=== PATIENT | female | born 1970 | race Caucasian/White ===

== ENCOUNTER 2023-07-03 12:50 | Outpatient (OUT) | payer OTHER, SELFPAY ==
--- NOTE | 2023-07-03 12:55 | MM_ITS ---
Patient Name: AMENA GONZALEZ MR#: [id number] : 1970 Exam Date: 07/03/2023 Ordering Doctor: DR LUIS CARLOS FLORIAN M.D. RADIOLOGY REPORT PROCEDURE: MM TOMOSYNTHESIS SCREENING BI COMPARISON: MG MAMM JUAN MIGUEL DIAG FU, 06/11/2019. MG MAMM SCREEN JUAN MIGUEL W CAD, 05/04/2018. INDICATIONS: screening Calculator Name NCI Breast Cancer Risk Assessment Tool 5 Year Breast Cancer Risk 1.00% Lifetime Breast Cancer Risk 7.70% Personal Breast Cancer No Personal Ovarian Cancer No Treatments None Family Cancers Mother with mouth cancer at age 57; Grandfather-maternal with stomach cancer at age 91. LOCATION: [facility] BREAST COMPOSITION: Heterogeneously dense,which may obscure small masses. FINDINGS: DIAGNOSTIC CATEGORY 2--BENIGN FINDING: RIGHT BREAST: No significant suspicious finding. A few benign-appearing nodules are present; one is smaller, others remain the same. LEFT BREAST: No significant suspicious finding. No significant change has occurred. RECOMMENDATIONS: ROUTINE MAMMOGRAM AND CLINICAL EVALUATION IN 12 MONTHS. PLEASE NOTE: A NORMAL MAMMOGRAM DOES NOT EXCLUDE THE POSSIBILITY OF BREAST CANCER. A CLINICALLY SUSPICIOUS PALPABLE LUMP SHOULD BE BIOPSIED. Dictated by: Mulugeta Plaza M.D. on 07/04/2023 at 10:44 Approved by: Mulugeta Plaza M.D. on 07/04/2023 at 10:48
== END 2023-07-03 12:51 | disposition home or self-care (01) ==
LOC: MAMMO 12:50
PROVIDERS: PCP Family Medicine; Visit Provider Family Medicine
DX: Z12.31 Encounter for screening mammogram for malignant neoplasm of breast (principal); Z80.8 Family history of malignant neoplasm of other organs or systems; Z80.0 Family history of malignant neoplasm of digestive organs
CPT/HCPCS: 77063; 77067

== ENCOUNTER 2024-08-13 10:15 | Outpatient (OUT) | payer OTHER, SELFPAY ==
--- NOTE | 2024-08-13 10:25 | MM_ITS ---
Patient Name: AMENA GONZALEZ MR#: [id number] : 1970 Exam Date: 08/13/2024 Ordering Doctor: ANA LAURA ASIF . RADIOLOGY REPORT PROCEDURE: MM TOMOSYNTHESIS SCREENING BI COMPARISON: MM TOMOSYNTHESIS SCREENING BI, 07/03/2023. MG MAMM JUAN MIGUEL DIAG FU, 06/11/2019. MG MAMM SCREEN JUAN MIGUEL W CAD, 05/04/2018. INDICATIONS: Screening Calculator Name NCI Breast Cancer Risk Assessment Tool 5 Year Breast Cancer Risk 1.00% Lifetime Breast Cancer Risk 7.50% Personal Breast Cancer No Personal Ovarian Cancer No Treatments None Family Cancers Mother with mouth cancer at age 57; Grandfather-maternal with stomach cancer at age 91. LOCATION: [facility] BREAST COMPOSITION: The breasts are heterogeneously dense,which may obscure small masses. FINDINGS: RIGHT BREAST: No significant suspicious finding. LEFT BREAST: No significant suspicious finding. DIAGNOSTIC CATEGORY 1--NEGATIVE. RECOMMENDATIONS: ROUTINE MAMMOGRAM AND CLINICAL EVALUATION IN 12 MONTHS. PLEASE NOTE: A NORMAL MAMMOGRAM DOES NOT EXCLUDE THE POSSIBILITY OF BREAST CANCER. A CLINICALLY SUSPICIOUS PALPABLE LUMP SHOULD BE BIOPSIED. Dictated by: Eddi Mak DO on 08/13/2024 at 16:25 Approved by: Eddi Mak DO on 08/13/2024 at 16:28
--- OUTSIDE RECORDS SUMMARY | 2024-08-13 10:38 | XMS_ITS | CCD ---
Author Organization [facility] ion [facility] Care Team Providers Care Med Dir Name Role Phone REQUEST, NONE LISTED Admitting Unavaila ble HEMEYER, DR MERCADO Primary Care Unavailable REQUEST, NONE LISTED Attending Unavaila ble REQUEST, NONE LISTED Consulting Unavaila ble HEMEYER, DR MERCADO Primary Care Unavailable REQUEST, NONE LISTED Admitting Unavaila ble REQUEST, NONE LISTED Attending Unavaila ble REQUEST, NONE LISTED Consulting Unavaila ble EDSON DUNNE Attending Unavailable Tenzin Aguilar MD Primary Care Provider Alida Singh Primary Care Physician Alida Singh Attending Unavailable FranciscoAlida Admitting Unavailable FranciscoAlida teague Attending Unavailable FranciscoAlida Attending Unavailable Allergies Allergy Classification Reported Allergen(s) Allergy Type Date of Onset Reaction(s) Facility Sulfonamides (antibiotic) (1 source) Sulfonamides (Antibiotic) Drug Allergy [facility] Repository (3 sources) Sulfamethoxazole / Trimethoprim Drug Allergy 01-14-20 23 Rash [facility] Work Phone: (3 sources) Sulfanilamide Allergy to substance 01-14-20 Rash [facility] (3 sources) [place] Venom Propensity to adverse reactions 01-17-19 90 Hives, Itching, Rash [facility] Medications Current Medications Medication Drug Class(es) Dates Sig (Normalized) Sig (Original) Black Cohosh Extract (3 sources) take 1 tablet by mouth once daily BLACK COHOSH PO Take 1 tablet by mouth 1 (one) time each day. Active ciprofloxacin 500 mg oral tablet (1 source) Quinolone Antimicrobial Start: 07-21-2024 take 1 tablet by mouth twice daily ciprofloxacin 500 mg Tab = 1 tab(s), Oral, BID, Refills(s) 0 Start Date: 07/21/24 Status: Ordered estradiol 1 mg oral tablet (1 source) Estrogen Start: 06-30-2024 take 1 tablet by mouth once daily estradiol 1 mg Tab 1 mg = 1 tab(s), Oral, Daily, # 90 tab(s), Refills(s) 0, Pharmacy: [facility], 163.4, cm, 06/30/24 9:39:00 EST, Height/Length Dosing, 94.5, kg, 06/30/24 9:39:00 EST, Weight Dosing Start Date: 06/30/24 Status: Ordered krill oil 500 mg oral capsule (2 sources) Krill Oil 500 MG capsule Take by mouth Active Multiple Vitamin (multivitamin) capsule (3 sources) take 1 capsule by mouth in the morning Multiple Vitamin (multivitamin) capsule Take 1 capsule by mouth in the morning. Active 24 hr oxybutynin chloride 5 mg extended release oral tablet (1 source) Cholinergic Muscarinic Antagonist Start: 06-30-2024 take 1 tablet by mouth once daily oxybutynin 5 mg ER Tab 5 mg = 1 tab(s), Oral, Daily, # 90 tab(s), Refills(s) 0, Pharmacy: [facility], 163.4, cm, 06/30/24 9:39:00 EST, Height/Length Dosing, 94.5, kg, 06/30/24 9:39:00 EST, Weight Dosing Start Date: 06/30/24 Status: Ordered progesterone 100 mg oral capsule (1 source) Progesterone Start: 06-30-2024 take 1 capsule by mouth once daily at bedtime progesterone 100 mg oral capsule 100 mg = 1 cap(s), Oral, Once a day (at bedtime), # 90 cap(s), Refills(s) 1, Pharmacy: [facility], 163.4, cm, 06/30/24 9:39:00 EST, Height/Length Dosing, 94.5, kg, 06/30/24 9:39:00 EST, Weight Dosing Start Date: 06/30/24 Status: Ordered rimegepant 75 mg disintegrating oral tablet (4 sources) Start: 06-30-2024 Nurtec ODT 75 mg oral tablet, disintegrating 75 mg = 1 tab(s), Oral, PRN Migraine headache, Refills(s) 0 Start Date: 06/30/24 Status: Ordered take 1 tablet by slime th every twenty-four hours as needed Nurtec 75 MG tablet dispersible Take 1 tablet by mouth Daily as needed (headache). Active Specialty Vitamins Products (MENOPAUSE SUPPORT PO) (3 sources) take 1 tablet by slime th in the morning Specialty Vitamins Products (MENOPAUSE SUPPORT PO) Take 1 tablet by mouth in the morning. Active Completed/Discontinued Medications Medication Drug Class(es) Dates Sig (Normalized) Sig (Original) citalopram 20 mg oral tablet (4 sources) Serotonin Reuptake Inhibitor Start: 06-30-2024 take 1 tablet by mouth once daily in the morning citalopram 20 mg Tab 20 mg = 1 tab(s), Oral, Daily, TAKE 1 TABLET (20 MG) BY MOUTH IN THE MORNING. Start Date: 06/30/24 Status: Ordered Start: 03-27-2023 take 1 tablet by slime th in the morning citalopram (CeleXA) 20 MG tablet Indications: Depression with anxiety Take 1 tablet (20 mg) by mouth in the morning. 100 tablet 3 03/27/2023 Active fluconazole 150 mg oral tablet (1 source) Azole Antifungal Start: 07-21-2024 take 4 tablets by mouth once Diflucan 150 mg Tab 150 mg = 1 tab(s), Oral, Once, take 1 tab on day one and 1 tabon day four, # 2 tab(s), Refills(s) 1, Pharmacy: [facility], 163.4, cm, 07/21/24 9:29:00 EST, Height/Length Dosing, 94.8, kg, 07/21/24 9:29:00 EST, Weight Dosing Start Date: 07/21/24 Status: Ordered Problems Problem Classification Problem Date Documented Da te Episodic/Chronic Anxiety disorders (5 sources) Mixed anxiety and depressive disorder; Translations: [Other specified anxiety disorders] Onset: 12-10-2022 02-11-2024 Chronic Genitourinary symptoms and ill-defined conditions (1 source) Urinary incontinence 06-30-2024 Chronic Headache; including migraine (6 sources) Migraine with aura; Translations: [Migraine with aura, not intractable, without status migrainosus] Onset: 12-10-2022 02-11-2024 Chronic Menopausal disorders (8 sources) Premature ovarian failure; Translations: [Other primary ovarian failure] Onset: 12-10-2022 02-11-2024 Chronic Mood disorders (8 sources) Recurrent major depressive episodes, mild ; Translations: [Major depressive disorder, recurrent, mild] Onset: 12-10-2022 02-11-2024 Chronic Mycoses (1 source) Candidiasis of vagina 07-21-2024 Episodic Nonmalignant breast conditions (5 sources) Fibrocystic disease of breast; Translations: [Diffuse cystic mastopathy of unspecified breast] Onset: 01-13-2023 02-11-2024 Chronic Other nutritional; endocrine; and metabolic disorders (5 sources) Obese class I; Translations: [Obesity, unspecified] Onset: 12-10-2022 02-11-2024 Chronic Other screening for suspected conditions (not mental disorders or infectious disease) (9 sources) Patient encounter status; Translations: [Encounter for screening for malignant neoplasm of colon] Onset: 12-10-2022 Resolved: 02-11-2024 02-11-2024 Episodic Residual codes; unclassified (1 source) Flushing 06-30-2024 Episodic Unclassified (1 source) Patient encounter status 07-21-2024 Results Test Name Value Interpretation Reference Range Facility PAP 07-26-2024 Cytology report Cyto stain Doc (Cvx/Vag) Note Invalid Interpretation Code [facility] Comment on above: Result Comment: TEST S RESULT FLAG UNITS REF RANGE LAB Clinician Provided Cytology Information Source.............Endocervix No. of containers..01 ThinPrep Vial DIAGNOSIS: 01 NEGATIVE FOR INTRAEPITHELIAL LESION OR MALIGNANCY. Specimen adequacy: 01 Satisfactory for evaluation. No endocervical component is identified. Performed by: Cindi Aguila, Customer Service And Sales Consultant (ASC) . 01 Note: Note 01 The Pap smear is a screening test designed to aid in the detection of premalignant and malignant conditions of the uterine cervix. It is not a diagnostic procedure and should not be used as the sole means of detecting cervical cancer. Both false-positive and false-negative reports do occur. Test Methodology: Note 01 This liquid based ThinPrep(R) pap test was screened with the use of an image guided system. HPV Genotype Reflex Note 01 Criteria not met, HPV Genotype not performed. FLAG LEGEND: L-Low Normal,H-High Normal,LL-Alert Low,HH-Alert High <-Panic Low,>-Panic High,A-Abnormal,AA-Critical Abnormal Performed at: [address] [facility] [place] [address] Nina Pelaez MD, Performed By: #### 1 [id number] #### [facility] [address] [place] [address] HPV 16+18+31+33+35+39+ 45+51+52+56+58+59+ 66+68 DNA Probe+sig amp Ql (Cvx) Negative Invalid Interpretation Code Negative [facility] Comment on above: Result Comment: This nucleic acid amplification test detects fourteen high-risk HPV types (16,18,31,33,35,39,45,51,52,56,58,59,66,68) without differentiation. Performed at: [facility] [place] [id number] MD Latanya Wood Performed at: =[address] [id number] MD Latanya Wood Performed By: #### 1 [id number] #### [facility] [address] [place] [address] Ambulatory Visit Summaryon 0 07-21-2024 Ambulatory Visit Summary Ambulatory Visit Summary AMENA GONZALEZ :1970 Visit Date:07/21/2024 Ambulatory Visit Instructions Your Diagnosis Well woman exam BMI 35.0-35.9,adult Non-smoker Your Care Team Attending Physician - Alida Coreas Primary Care Physician - Alida Coreas This Is Your Medications List ciprofloxacin (ciprofloxacin 500 mg Tab) citalopram (citalopram 20 mg Tab) estradiol (estradiol 1 mg Tab) oxybutynin (oxybutynin 5 mg ER Tab) progesterone (progesterone 100 mg oral capsule) rimegepant (Nurtec ODT 75 mg oral tablet, disintegrating) Procedures Performed Endometrial ablation (05/10/2019), Endovenous laser ablation of varicose vein (01/25/2006), Tonsillectomy (10/21/2001), Dilation and curettage (01/26/1999), section (07/18/1992), Removal of ovarian cyst (03/22/1989). Discharge Vitals Heart Rate (Peripheral) 80 Respiratory Rate 18 Blood Pressure 128/80 Height 163.4 cm Height 64 in Weight 94.75 kg Weight 208.888 lb BMI 35.49 Medications What How Much When Why Instructions New ciprofloxacin (ciprofloxacin 500 mg Tab) 1 Tablets By Mouth 2 times a day Unchanged citalopram (citalopram 20 mg Tab) 1 Tablets By Mouth Every day TAKE 1 TABLET (20 MG) BY MOUTH IN THE MORNING. Unchanged estradiol (estradiol 1 mg Tab) 1 Tablets By Mouth Every day Hot flashes Urinary incontinence BMI 35.0-35.9,adult Smoker Unchanged oxybutynin (oxybutynin 5 mg ER Tab) 1 Tablets By Mouth Every day Hot flashes Urinary incontinence BMI 35.0-35.9,adult Smoker Unchanged progesterone (progesterone 100 mg oral capsule) 1 Capsules By Mouth Once a day (at bedtime) Hot flashes Urinary incontinence BMI 35.0-35.9,adult Smoker Unchanged rimegepant (Nurtec ODT 75 mg oral tablet, disintegrating) 1 Tablets By Mouth As needed for Migraine headache Allergies No active allergies Problems Ongoing - Any problem that you are currently receiving treatment for. Hot flashes Migraine Recurrent major depression Urinary incontinence Well woman exam Patient Survey You may receive a survey via text or e-mail asking about your office visit. Please share your experience with us by completing your survey. We appreciate your feedback and thank you for choosing us for your care. [facility] Family Medicine Office/Clini c Noteon 07-21-2024 Family Medicine Office/Clinic Note Family Medicine Office/Clinic Note HPI Staff Amena is a 53 year old female presenting for well woman Woman check up: Last pap: 5 year ago Last Arielle: arielle ordered SHOBHA 06/30/24 sent to [facility] Results of lap pap: normal Where was it done: hx: # of pregnancies..2. abortions... live births...1 living children... 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 yes Hx of breast, cervical or uterine cancer in the family: no History of Present Illness pt presents today for well woman visit Review of Systems PHQ Score Initial Depression Screen Score: 3 SCORE Physical Exam Vitals & Measurements HR: 80(Peripheral) RR: 18 BP: 128/80 SpO2: 98% HT: 64 in HT: 163.4 cm WT: 94.75 kg WT: 208.888 lb BMI: 35.49 General: Well developed, well nourished, in no acute distress Neck: Neck supple. No masses or palpable cervical nodes. Trachea midline. Thyroid without nodules, masses, tenderness, or enlargement Breast: No mass, nodule, discharge, or erythema bilaterally, and no axillary lymphadenopathy Lungs: Normal respiratory effort and clear to auscultation Cardio: Regular rate and rhythm, normal S1 and S2, no murmur, no rub Abdomen: Soft, non-distended, non-tender, normal bowel sounds x4 Gyno: normal external genitalia. Urethra no discharge. Vagina normal without lesions, no vaginal discharge. Cervix normal, without lesions. Uterus normal. No adnexal masses. Pap obtained thick white vaginal discharge noted on exam Neurologic: Grossly normal Skin: [place], moist, no tenting Lymph Nodes: No cervical adenopathy, nodes normal Mental Status: Alert and oriented x3. Normal mood and affect Assessment/Plan 1. Well woman exam (Z01.419: Encounter for gynecological examination (general) (routine) without abnormal findings) pt presents today for well woman visit. mammogram order sent to [facility]. BSE discussed. pap obtained without difficulty. Ordered: fluconazole, 150 mg = 1 tab(s), Oral, Once, take 1 tab on day one and 1 tabon day four, # 2 tab(s), Refills(s) 1, Pharmacy: [facility], 163.4, cm, 07/21/24 9:29:00 EST, Height/Length Dosing, 94.8, kg, 07/21/24 9:29:00 EST, Weight Dosing Est Preventative 40 to 64 years [address] PAP [id number] w/ HPV and Genotype rflx 2. Vaginal yeast infection (B37.31: Acute candidiasis of vulva and vagina) will send diflucan Ordered: fluconazole, 150 mg = 1 tab(s), Oral, Once, take 1 tab on day one and 1 tabon day four, # 2 tab(s), Refills(s) 1, Pharmacy: [facility], 163.4, cm, 07/21/24 9:29:00 EST, Height/Length Dosing, 94.8, kg, 07/21/24 9:29:00 EST, Weight Dosing Est Preventative 40 to 64 years [address] 3. BMI 35.0-35.9,adult (Z68.35: Body mass index [BMI] 35.0-35.9, adult) BMI education given Ordered: fluconazole, 150 mg = 1 tab(s), Oral, Once, take 1 tab on day one and 1 tabon day four, # 2 tab(s), Refills(s) 1, [facility], 163.4, cm, 07/21/24 9:29:00 EST, Height/Length Dosing, 94.8, kg, 07/21/24 9:29:00 EST, Weight Dosing Est Preventative 40 to 64 years [address] PAP w/ HPV and Genotype rflx 4. Non-smoker (Z78.9: Other specified health status) continue not smoking Ordered: fluconazole, 150 mg = 1 tab(s), Oral, Once, take 1 tab on day one and 1 tabon day four, # 2 tab(s), Refills(s) 1, Pharmacy: [facility], 163.4, cm, 07/21/24 9:29:00 EST, Height/Length Dosing, 94.8, kg, 07/21/24 9:29:00 EST, Weight Dosing Est Preventative 40 to 64 years [address] PAP w/ HPV and Genotype rflx Follow-up No qualifying data available Problem List/Past Medical History Ongoing Hot flashes Migraine Recurrent major depression Urinary incontinence Vaginal yeast infection Well woman exam Historical No qualifying data Procedure/Surgical History Endometrial ablation (05/10/2019), Endovenous laser ablation of varicose vein (01/25/2006), Tonsillectomy (10/21/2001), Dilation and curettage (01/26/1999), section (07/18/1992), Removal of ovarian cyst (03/22/1989). Medications ciprofloxacin 500 mg Tab, 1 tab(s), Oral, BID citalopram 20 mg Tab, 20 mg= 1 tab(s), Oral, Daily Diflucan 150 mg Tab, 150 mg= 1 tab(s), Oral, Once, 1 refills estradiol 1 mg Tab, 1 mg= 1 tab(s), Oral, Daily Nurtec ODT 75 mg oral tablet, disintegrating, 75 mg= 1 tab(s), Oral, PRN oxybutynin 5 mg ER Tab, 5 mg= 1 tab(s), Oral, Daily progesterone 100 mg oral capsule, 100 mg= 1 cap(s), Oral, Once a day (at bedtime), 1 refills Allergies No active allergies Social History Alcohol Past. Beer, Liquor. 3-5 times per week., 06/30/2024 Substance Abuse Never., 06/30/2024 Tobacco light use more than 35 years ago Tobacco Use:., 06/30/2024 Normal [facility] Comment on above: Result Comment: Elec tronically Signed By: Alida Coreas\.anshu\Date and Time Signed: 07/21/24 10:44 EST PAP [id number] 07-21-2024 Gynecological Body Site ENDOCERVIX Normal [facility] Comment on above: Performed By: #### 1 [id number] #### [facility] [address] [place] [address] Family Medicine Office/Clini c Noteon 06-30-2024 Family Medicine Office/Clinic Note Family Medicine Office/Clinic Note [facility] Staff Amena is a 53 year old female presenting to establish care Establish Care: History: Any previous diagnosis: Migraines, depression History of seeing any specialist: When was your last doctors visit: Last provider: Yudith gAuilar(records requested) Any recent labs: PHQ-9: 4 Health Maintenance UTD: Colonoscopy: Cologuard twice both normal Mammogram: Due, pt needs order for [facility] Pelvic/Pap: 5 years, was normal Acute: Current issues/complaints: pt in menopause now having hot flashes has been blackcohosh. helps some. Also says after she a the bladder flap was sewed in wrong and when she does get UTI within a day she is peeing blood. So she would have an on hand Rx of cipro to take right away usually only happens once a year. History of Present Illness pt presents today for urinary incontinence and hot flashes Review of Systems PHQ Score Initial Depression Screen Score: 1 SCORE Physical Exam Vitals & Measurements HR: 86(Peripheral) RR: 18 BP: 138/84 SpO2: 99% HT: 64 in HT: 163.4 cm WT: 94.45 kg WT: 208.226 lb BMI: 35.38 General: alert, no acute distress ENMT: oral mucosa moist, no pharyngeal erythema or exudate Cardiovascular: regular rate and rhythm, normal peripheral perfusion Respiratory: Lungs CTA, respirations non labored Extremities: no deformity, no trauma Neurological: oriented x 4, LOC appropriate for age, CN II-XII intact, motor strength equal & normal bilaterally, speech normal Assessment/Plan 1. Hot flashes (R23.2: Flushing) pt presents today to establish care. is having worsening hot flashes. she has taken Estroven and black cohosh OTC but it is no longer helping. will order estradiol and progesterone. RTC for well woman visit. Ordered: estradiol, 1 mg = 1 tab(s), Oral, Daily, # 90 tab(s), Refills(s) 0, Pharmacy: [facility], 163.4, cm, 06/30/24 9:39:00 EST, Height/Length Dosing, 94.5, kg, 06/30/24 9:39:00 EST, Weight Dosing oxybutynin, 5 mg = 1 tab(s), Oral, Daily, # 90 tab(s), Refills(s) 0, Pharmacy: [facility], 163.4, cm, 06/30/24 9:39:00 EST, Height/Length Dosing, 94.5, kg, 06/30/24 9:39:00 EST, Weight Dosing progesterone, 100 mg = 1 cap(s), Oral, Once a day (at bedtime), # 90 cap(s), Refills(s) 1, Pharmacy: [facility], 163.4, cm, 06/30/24 9:39:00 EST, Height/Length Dosing, 94.5, kg, 06/30/24 9:39:00 EST, Weight Dosing 2. Urinary incontinence (R32: Unspecified urinary incontinence) pt c/o bladder leakage. Ordered: estradiol, 1 mg = 1 tab(s), Oral, Daily, # 90 tab(s), Refills(s) 0, Pharmacy: [facility], 163.4, cm, 06/30/24 9:39:00 EST, Height/Length Dosing, 94.5, kg, 06/30/24 9:39:00 EST, Weight Dosing oxybutynin, 5 mg = 1 tab(s), Oral, Daily, # 90 tab(s), Refills(s) 0, Pharmacy: [facility], 163.4, cm, 06/30/24 9:39:00 EST, Height/Length Dosing, 94.5, kg, 06/30/24 9:39:00 EST, Weight Dosing progesterone, 100 mg = 1 cap(s), Oral, Once a day (at bedtime), # 90 cap(s), Refills(s) 1, Pharmacy: [facility], 163.4, cm, 06/30/24 9:39:00 EST, Height/Length Dosing, 94.5, kg, 06/30/24 9:39:00 EST, Weight Dosing 3. BMI 35.0-35.9,adult (Z68.35: Body mass index [BMI] 35.0-35.9, adult) BMI education given Ordered: estradiol, 1 mg = 1 tab(s), Oral, Daily, # 90 tab(s), Refills(s) 0, Pharmacy: [facility], 163.4, cm, 06/30/24 9:39:00 EST, Height/Length Dosing, 94.5, kg, 06/30/24 9:39:00 EST, Weight Dosing oxybutynin, 5 mg = 1 tab(s), Oral, Daily, # 90 tab(s), Refills(s) 0, Pharmacy: [facility], 163.4, cm, 06/30/24 9:39:00 EST, Height/Length Dosing, 94.5, kg, 06/30/24 9:39:00 EST, Weight Dosing progesterone, 100 mg = 1 cap(s), Oral, Once a day (at bedtime), # 90 cap(s), Refills(s) 1, Pharmacy: [facility], 163.4, cm, 06/30/24 9:39:00 EST, Height/Length Dosing, 94.5, kg, 06/30/24 9:39:00 EST, Weight Dosing 4. Smoker (F17.200: Nicotine dependence, unspecified, uncomplicated) consider not smoking Ordered: estradiol, 1 mg = 1 tab(s), Oral, Daily, # 90 tab(s), Refills(s) 0, Pharmacy: [facility], 163.4, cm, 06/30/24 9:39:00 EST, Height/Length Dosing, 94.5, kg, 06/30/24 9:39:00 EST, Weight Dosing oxybutynin, 5 mg = 1 tab(s), Oral, Daily, # 90 tab(s), Refills(s) 0, Pharmacy: [facility], 163.4, cm, 06/30/24 9:39:00 EST, Height/Length Dosing, 94.5, kg, 06/30/24 9:39:00 EST, Weight Dosing progesterone, 100 mg = 1 cap(s), Oral, Once a day (at bedtime), # 90 cap(s), Refills(s) 1, Pharmacy: [facility], 163.4, cm, 06/30/24 9:39:00 EST, Height/Length Dosing, 94.5, kg, 06/30/24 9:39:00 EST, Weight Dosing Follow-up No qualifying data available Problem List/Past Medical History Ongoing Hot flashes Migraine Recurrent major depression Urinary incontinence Historical No qualifying data Procedure/Surgical History Endometrial ablation (05/10/2019), Endovenous laser ablation of varicose vein (01/25/2006), Tonsillectomy (10/21/2001), Dilat (more content not included)... Normal [facility] Comment on above: Result Comment: Elec tronically Signed By: Francisco DRAPER, Alida Olivas\.br\Date and Time Signed: 06/30/24 10:54 EST Vital Signs Date Time Vital Sign Value Performing Clinician Faci lity 02-11-2024 08:28-0400 Body height 162.6 cm Edson Dunne LEASE OUT WORKER Work Phone: [facility] 02-11-2024 08:28-0400 Body mass index (BMI) [Ratio] 35.02 kg/m2 Edson Dunne LEASE OUT WORKER Work Phone: [facility] 02-11-2024 08:28-0400 Body weight 92.53 kg Edson Dunne LEASE OUT WORKER Work Phone: [facility] 02-11-2024 08:28-0400 Diastolic blood pressure 78 mm[Hg] Edson Dunne LEASE OUT WORKER Work Phone: [facility] 02-11-2024 08:28-0400 Heart rate 78 /min Edson Dunne LEASE OUT WORKER Work Phone: [facility] 02-11-2024 08:28-0400 SaO2% (BldA) [Mass fraction] 97 % Edson Dunne LEASE OUT WORKER Work Phone: [facility] 02-11-2024 08:28-0400 Systolic blood pressure 124 mm[Hg] Edson Dunne LEASE OUT WORKER Work Phone: [facility] Encounters Encounter Date Encounter Type Care Provider Facility Start: 07-21-2024 End: 07-21-2024 ambulatory Alida [place] [place]: 07-21-2024 End: 07-21-2024 Lab Drop off Alida Singh [facility] Start: 07-21-2024 End: 07-21-2024 ambulatory Alida L Francisco Facility:[facility] Start: 06-30-2024 End: 06-30-2024 ambulatory Alida L Francisco Facility:[facility] [place] Start: 06-28-2024 ambulatory Alida Francisco Facility:[facility] Start: 02-11-2024 End: 02-11-2024 Bamboo flowsheet Edson Dunne NP Work Phone: [facility] Start: 02-11-2024 End: 02-11-2024 Bamboo flowsheet Edson Dunne [employer] OUT WORKER Work Phone: [facility] Start: 02-11-2024 End: 02-11-2024 Patient encounter status Edson Dunne [employer] OUT WORKER Work Phone: [facility] Start: 02-11-2024 End: 02-11-2024 Periodic preventive med est patient 40-64yrs Edson Dunne LEASE OUT WORKER Work Phone: [facility] Comment on above: Well adult exam (Kayla elena Dx); Screen for colon cancer; Major depressive disorder, recurrent, mild (HCC) (CMS/HCC); Obesity (BMI 30.0-34.9); Premature ovarian failure; Depression with anxiety; Fibrocystic breast disease (FCBD) in female, unspecified laterality; Migraine with aura and without status migrainosus, not intractable (CMS/HCC); Mild episode of recurrent major depressive disorder (HCC) (CMS/HCC); Screening for lipid disorders; Encounter for vitamin deficiency screening Start: 02-11-2024 End: 02-11-2024 ambulatory EDSON DUNNE Not Available Start: 01-13-2023 Patient encounter status Jason Dunne LE[employer] OUT WORKER Work Phone: [facility] Start: 09-07-2020 End: 09-08-[address] ROGELIO NICHOLE Facility:[facility] Start: 08-18-2020 End: 08-19-2020 ambulatory NONE LISTED REQUEST Facility:[facility] Procedures Date Procedure Procedure Detail Performing Clinician Start: 07-04-2023 Mammography Edson murguia NP Work Phone: Start: 05-10-2019 Endometrial ablation Fariba Roth Start: 01-25-2006 Endovenous laser abl ation of varicose vein Alida Singh Start: 10-21-2001 Tonsillectomy Alida teague Start: 01-26-1999 Dilation and curettage Alida Singh Start: 07-18-1992 section Alida gomez Start: 03-22-1989 Removal of ovarian cyst Alida Singh Plan of Treatment Date Care Activity Detail Author Start: 02-10-2025 End: 02-10-2025 Patient encounter procedure 02/10/2025 8:30 AM EDT Office Visit [facility] [address] [facility] [address] [place] [address] Candie Malcolm PA [address] [place] [address] [place] [address] [facility] Start: 07-04-2024 Screening for malign ant neoplasm of breast Mammogram [facility] Start: 02-11-2024 End: 02-10-2025 25-hydroxyvitamin D3 [Mass/volume] in Serum or Plasma Vitamin D 25 hydroxy Lab Routine Major depressive disorder, recurrent, mild (HCC) (CMS/HCC) Well adult exam Encounter for vitamin deficiency screening Expected: 02/11/2024 (Approximate), Expires: 02/10/2025 [facility] Comment on above: Expected: 02/11/2024 (Approximate), Expires: 02/10/2025 Start: 02-11-2024 End: 02-10-2025 CBC panel - Blood by Automated count CBC Lab Routine Obesity (BMI 30.0-34.9) Well adult exam Expected: 02/11/2024 (Approximate), Expires: 02/10/2025 [facility] Comment on above: Expected: 02/11/2024 (Approximate), Expires: 02/10/2025 Start: 02-11-2024 End: 02-10-2025 Comprehensive metabolic 2000 panel - Serum or Plasma Comprehensive metabolic panel Lab Routine Obesity (BMI 30.0-34.9) Migraine with aura and without status migrainosus, not intractable (CMS/HCC) Expected: 02/11/2024 (Approximate), Expires: 02/10/2025 [facility] Comment on above: Expected: 02/11/2024 (Approximate), Expires: 02/10/2025 Start: 02-11-2024 End: 02-10-2025 Lipid 1996 panel - Serum or Plasma Lipid panel Lab Routine Well adult exam Screening for lipid disorders Expected: 02/11/2024 (Approximate), Expires: 02/10/2025 [facility] Comment on above: Expected: 02/11/2024 (Approximate), Expires: 02/10/2025 Start: 02-11-2024 End: 02-10-2025 Noninvasive colorectal cancer DNA and occult blood screening [Presence] in Stool Cologuard colon cancer screening Lab Routine Screen for colon cancer Expected: 02/11/2024 (Approximate), Expires: 02/10/2025 [facility] Work Phone: Comment on above: Expected: 02/11/2024 (Approximate), Expires: 02/10/2025 Start: 02-11-2024 End: 02-11-2024 Patient encounter procedure 02/11/2024 8:30 AM EDT Office Visit [facility] [address] [facility] [address] [place] [address] Edson Dunne, [employer] [address] [facility] [address] [place], [place] [id number] Arrived [facility] Comment on above: Arrived Start: 01-18-2024 Influenza vaccination Influenza Vacc ine (#1) [facility] Start: 01-05-2024 Screening for malign ant neoplasm of colon [facility] Start: 10-25-1999 Screening for malign ant neoplasm of cervix [facility] Start: 1990 Screening for malign ant neoplasm of cervix Pap Smear [facility] Start: 1969 Screening for malign ant neoplasm of colon [facility] Payers Date Payer Category Payer Unknown [id number] 2022 Unknown [id number] 1969 Unknown [id number] 1969 Unknown [id number] 1969 Unknown [id number] 1969 Unknown [id number] [id number] 1959 Self-pay Unknown [id number] Unknown [id number] Social History Date Type Detail Facility Start: 02-11-2024 Tobacco smoking stat [facility] Ex-smoker [facility] Start: 10-17-1988 End: 10-17-1989 History of tobacco use Current smoker [facility] Start: 10-17-1988 End: 10-17-1989 History of tobacco use Cigarette Smoker [facility] Start: 01-07-2023 End: 02-11-2024 Cigarettes smoked current (pack per day) - Reported 0.3 [facility] Start: 01-13-2023 End: 02-11-2024 Tobacco use and exposure Smokeless tobacco non-user [facility] Start: 02-27-2023 End: 02-11-2024 Alcoholic beverage intake Current drinker of alcohol (finding) [facility] Start: 01-07-2023 End: 02-10-2024 [id number] Health Literacy [facility] How often do you nee d to have someone help you when you read instructions, pamphlets, or other written material from your doctor or pharmacy [SILS] Never [facility] Within the last year , have you been afraid of your partner or ex-partner? No [facility] Do you belong to any clubs or organizations such as jainism groups, unions, fraternal or athletic groups, or school groups? Yes [facility] Are you now , , , , never or living with a partner? [facility] How often to you hav e a drink containing alcohol? Monthly or less [facility] How many standard dr inks containing alcohol do you have on a typical day? 1 or 2 [facility] How often do you hav e 6 or more drinks on 1 occasion? Never [facility] How hard is it for y ou to pay for the very basics like food, housing, medical care, and heating Not very hard [facility] Do you feel stress - tense, restless, nervous, or anxious, or unable to sleep at night because your mind is troubled all the time - these days [OSQ] Only a little [facility] (I/We) worried wheraymond er (my/our) food would run out before (I/we) got money to buy more. Never true [facility] Start: 1970 Sex assigned at Not on file [facility] Start: 01-13-2023 [facility] Do you feel stress - tense, restless, nervous, or anxious, or unable to sleep at night because your mind is troubled all the time - these days [OSQ] Not at all [facility] Tobacco light use more t siddiqui 35 years ago Tobacco Use:. [facility] Tobacco smoking status No Smokin g Status Entered [facility] Evaluation + Plan note 07-21-2024 Note Date & Type Note Facility 07-21-2024 Evaluation + Plan note Diagnostic Tests PendingPAP w/ HPV and Genotype rflx 07/21/24 [facility] History of Present illness Narrative 02-11-2024 Edson Dunne NP - 02/11/2024 8:30 AM EDT Note Date & Type Note Facility 02-11-2024 History of Presen t illness Narrative Images from the original note were not included. Subjective Patient ID: Amena Gonzalez is a 53 y.o. female who presents for Annual Exam. Pt is here for her annual , needs all labs , cologuard and pap Pt is fasting , she has no concerns Current Outpatient Medications on File Prior to Visit Medication Sig Dispense Refill BLACK COHOSH PO Take 1 tablet by mouth 1 (one) time each day. citalopram (CeleXA) 20 MG tablet Take 1 tablet (20 mg) by mouth in the morning. 100 tablet 3 Multiple Vitamin (multivitamin) capsule Take 1 capsule by mouth in the morning. Nurtec 75 MG tablet dispersible Take 1 tablet by mouth Daily as needed (headache). Specialty Vitamins Products (MENOPAUSE SUPPORT PO) Take 1 tablet by mouth in the morning. No current facility-administered medications on file prior to visit. I have reviewed and reconciled the history and medication list with the patient today. Allergies Allergen Reactions Sulfamethoxazole-Trimethoprim Rash Sulfanilamide Rash Yellow Jacket Venom Hives, Itching and Rash Social History Tobacco Use Smoking status: Former Current packs/day: 0.00 Average packs/day: 0.3 packs/day for 1.2 years (0.3 ttl pk-yrs) Types: Cigarettes Start date: 10/17/1988 Quit date: 10/17/1989 Years since quittin.3 Smokeless tobacco: Never Substance Use Topics Alcohol use: Yes Alcohol/week: 1.0 standard drink of alcohol Types: 1 Standard drinks or equivalent per week Drug use: Never Family History Problem Relation Name Age of Onset Hypertension Mother Elena Matos Cancer Mother Elena Matos mouth Depression Mother Elena Matos Alcohol abuse Father Ab Sanchez COPD Maternal Grandmother Radha Oscar Depression Maternal Grandmother Radha Oscar Diabetes Paternal Grandmother Yaima Sanchez Diabetes Paternal Grandfather Dennis Sanchez Rheum arthritis Mother's Sister Depression Mother's Sister Anamaria Oscar Past Medical History: Diagnosis Date ablation therapy Allergic Allergic rhinitis Allergies Anxiety Asymptomatic varicose veins Classic migraine with aura (CMS/HCC) Depression (CMS/HCC) Dysthymic disorder (CMS/HCC) Hormone replacement therapy (HRT) Other primary ovarian failure Ovarian hypofunction Recurrent UTI (urinary tract infection) Varicella 04/1976 Past Surgical History: Procedure Laterality Date APPENDECTOMY SECTION, LOW TRANSVERSE DILATION AND CURETTAGE 1998 OVARY SURGERY 1988 Ovarian Rupture and Appendectomy TONSILLECTOMY 2001 VARICOSE VEIN SURGERY 2006 Varicose Vein Ablation Visit Vitals Smoking Status Former Review of Systems Constitutional: Positive for activity change. HENT: Negative. Respiratory: Negative. Cardiovascular: Negative. Gastrointestinal: Negative. Genitourinary: Negative. Musculoskeletal: Rt hip goes out every once and awhile Skin: Negative. Neurological: Negative. Psychiatric/Behavioral: Negative. All other systems reviewed and are negative. Objective Physical Exam Vitals reviewed. Constitutional: Appearance: Normal appearance. HENT: Head: Normocephalic. Right Ear: Tympanic membrane normal. Left Ear: Tympanic membrane normal. Nose: Nose normal. Mouth/Throat: Mouth: Mucous membranes are moist. Pharynx: Oropharynx is clear. Eyes: Conjunctiva/sclera: Conjunctivae normal. Pupils: Pupils are equal, round, and reactive to light. Cardiovascular: Rate and Rhythm: Normal rate and regular rhythm. Pulses: Normal pulses. Heart sounds: Normal heart sounds. Pulmonary: Effort: Pulmonary effort is normal. Breath sounds: Normal breath sounds. Abdominal: General: Bowel sounds are normal. Palpations: Abdomen is soft. Musculoskeletal: General: Normal range of motion. Cervical back: Normal range of motion and neck supple. Skin: General: Skin is warm and dry. Neurological: General: No focal deficit present. Mental Status: She is alert and oriented to person, place, and time. Psychiatric: Mood and Affect: Mood normal. Behavior: Behavior normal. Thought Content: Thought content normal. Assessment/Plan Diagnoses and all orders for this visit: Well adult exam - Vitamin D 25 hydroxy; Future - Lipid panel; Future - CBC; Future Wellness form reviewed in detail with the patient. Encouraged patient to stay up to date on immunizations and preventative testing. Encouraged healthy diet, stay active. Will continue with yearly wellness exams. Screen for colon cancer - Cologuard colon cancer screening; Future Await results Major depressive disorder, recurrent, mild (HCC) (CMS/HCC) - Vitamin D 25 hydroxy; Future Medication as directed. Condition is stable with medication.Verbalizes understanding of the need to be seen in the ER for suicidal/homicidal ideation, excessive stress, elevated blood pressure or palpitations. Pt offers understanding of treatment plan. I discussed the side effects of the medications described and to seek medical care if they arise. Discussed stress mgmt strategies, social support and importance of healthy diet, exercise and regular sleep habits. Advised on relaxation methods to decrease anxiety and depression. Obesity (BMI 30.0-34.9) - Comprehensive metabolic panel; Future - CBC; Future Discussed goal of BMI < 30. Advised on weight loss options. Encouraged diet and exercise. Discussed with patient appropriate lifestyle modification changes necessary for weight management, heart healthy eating and overall health promotion. Discussed minimizing high carb, high sugar, high sodium, portion control, and processed foods while making healthy choice replacements. Additionally discussed recommendations of 30 minutes of aerobic exercise at least 5 days per week, that includes, walking, and chair exercises. . Instructed importance of drinking adequate water consumption (if not on fluid restriction) with minimal sugar and caffiene. Premature ovarian failure This is a chronic medical condition that is stable since last assessment. No changes in treatment are suggested at this time. Depression with anxiety Medication as directed. Verbalizes understanding of the need to be seen in the ER for suicidal/homicidal ideation, excessive stress, elevated blood pressure or palpitations. Pt offers understanding of treatment plan. I discussed the side effects of the medications described and to seek medical care if they arise. Discussed stress mgmt strategies, social support and importance of healthy diet, exercise and regular sleep habits. Advised on relaxation methods to decrease anxiety and depression. Fibrocystic breast disease (FCBD) in female, unspecified laterality This is a chronic medical condition that is stable since last assessment. No changes in treatment are suggested at this time. Migraine with aura and without status migrainosus, not intractable (CMS/HCC) - Comprehensive metabolic panel; Future This is a chronic medical condition that is stable since last assessment. No changes in treatment are suggested at this time. Mild episode of recurrent major depressive disorder (HCC) (CMS/HCC) Medication as directed. Verbalizes understanding of the need to be seen in the ER for suicidal/homicidal ideation, excessive stress, elevated blood pressure or palpitations. Pt offers understanding of treatment plan. I discussed the side effects of the medications described and to seek medical care if they arise. Discussed stress mgmt strategies, social support and importance of healthy diet, exercise and regular sleep habits. Advised on relaxation methods to decrease anxiety and depression. Screening for lipid disorders - Lipid panel; Future Await lab Encounter for vitamin deficiency screening - Vitamin D 25 hydroxy; Future Await lab No follow-ups on file. documented in this encounter [facility] Evaluation note Note Date & Type Note Facility Evaluation note Diagnosis Well adult exam- Primary Routine general medical examination at a health care facility Screen for colon cancer Special screening for malignant neoplasms, colon Major depressive disorder, recurrent, mild (HCC) ([facility]/HCC) Major depressive disorder, recurrent episode, mild Obesity (BMI 30.0-34.9) Premature ovarian failure Other ovarian dysfunction Depression with anxiety Dysthymic disorder Fibrocystic breast disease (FCBD) in female, unspecified laterality Migraine with aura and without status migrainosus, not intractable (CMS/HCC) Mild episode of recurrent major depressive disorder (HCC) ([facility]/HCC) Screening for lipid disorders Encounter for vitamin deficiency screening documented in this encounter [facility] Hospital course Narrative Note Date & Type Note Facility Hospital course Narrative No data available for this section [facility] Hospital Discharge instructions Note Date & Type Note Facility Hospital Discharge instructions No data available for this section [facility] Progress note Note Date & Type Note Facility Progress note No data available for this section [facility] Summary Purpose Family History No Family History Records FoundNo Family History Records Found No data available for this section No Family History Records FoundNo Family History Records Found Advance Directives No Advanced Directives Records FoundNo Advanced Directives Records FoundNo Advanced Directives Records FoundNo Advanced Directives Records Found Additional Source Comments INFORMATION SOURCE (unrecogn ized section and content) DATE CREATED AUTHOR [facility]/[address] [facility] DATE CREATED AUTHOR AUTHOR'S ORGANIZ ATION 02/13/2024 [facility] EPIC DATE CREATED AUTHOR AUTHOR'S ORGANIZ ATION 07/23/2024 [facility] DATE CREATED AUTHOR AUTHOR'S ORGANIZ ATION 07/28/2024 [facility] Reason for Visit (unrecogniz ed section and content) Reason Comments Annual Exam Care Teams (unrecognized sec tion and content) Med Dir Relationship Specialty Start Date End Date Tenzin Aguilar MD [address] [place] [address] [place], [place] [id number] PCP - General Family Medicine 09/24/22 Med Dir Relationship Specialty Start Date End Date Tenzin Aguilar MD [address] [place] [address] PCP - General Family Medicine 09/24/22 FOR RECORDS PERTAINING TO PATIENTS WHO ARE OR HAVE BEEN ENROLLED IN A CHEMICAL DEPENDENCY/SUBSTANCEABUSE PROGRAM, SOME INFORMATION MAY BE OMITTED. This clinical summary was aggregated from multiple sources. Caution should be exercised in using it in the provision of clinical care. This summary normalizes information from multiple sources, and as a consequence, information in this document may materially change the coding, format and clinical context of patient data. In addition, data may be omitted in some cases. CLINICAL DECISIONS SHOULD BE BASED ON THE PRIMARY CLINICAL RECORDS. [facility] [employer] [facility]. provides no warranty or guarantee of the accuracy or completeness of information in this document.
== END 2024-08-13 10:16 | disposition home or self-care (01) ==
LOC: MAMMO 10:16
PROVIDERS: PCP Nurse Practitioner; Visit Provider Nurse Practitioner
DX: Z12.31 Encounter for screening mammogram for malignant neoplasm of breast (principal); Z80.0 Family history of malignant neoplasm of digestive organs; Z80.8 Family history of malignant neoplasm of other organs or systems
CPT/HCPCS: 77063; 77067